=== PATIENT | male | born 1965 | race Caucasian/White ===

== ENCOUNTER 2024-06-17 15:03 | Inpatient (IN) | payer OTHER, SELFPAY ==
[2024-06-17 15:12] VITALS: BP 113/80; PULSE 111; RESP 18; TEMP 36.8; O2SAT 95; BMI 32.3
--- NOTE | 2024-06-17 15:15 | EKG_ITS ---
[facility] Test Date: 2024-06-17 Pat Name: OLIVIA BASSETT Department: Room: - Gender: Male [employer]: : 1965 Requested By: Chata Lazcano Order Number: [id number] Reading MD: Chata Lazcano Measurements Intervals Porter Rate: 91 P: 44 [place]: 137 QRS: 53 QRSD: 92 T: 47 QT: 342 QTc: 421 Interpretive Statements SINUS RHYTHM Compared to ECG 03/02/2019 22:56:11 Sinus tachycardia no longer present /store/S0/[id number].pdf
--- NOTE | 2024-06-17 15:15 | XR_ITS ---
Examination: Abdomen sonogram, Limited Date and time of exam: June 17, 2024 1608 hours INDICATIONS: Right abdominal pain and vomiting beginning 3 days ago Technique: Real-time ward scale transabdominal sonographic images of the upper abdomen obtained. Findings: Negative for gallstones Gallbladder wall 0.5 cm suspicious for edema Common bile duct 0.2 cm Pancreatic head 2.7 cm Liver 18.0 cm fatty infiltration irregular contour no focal liver lesions Normal hepatopedal portal venous flow Patent IVC IMPRESSION: Recommend MRCP or HIDA scan follow-up to confirm acute acalculous cholecystitis Moderate hepatomegaly fatty liver irregular contour, clinical correlation advised
--- NOTE | 2024-06-17 15:16 | PD.EDABDPN ---
ED Abdominal Pain RME/HPI General Chief Complaint: Abdominal Pain Stated complaint: MEDICAL CLEARANCE Time seen by provider: 06/17/24 15:11 Arrival date/time: 06/17/24 15:03 RME / HPI RME / HPI narrative: 58-year-old male patient came in for evaluation regarding right upper quadrant pain. This been ongoing for the last 3 days, associated with nausea vomiting, cannot take anything down. Patient [facility]fran [facility] however is not working. Denies any fever denies any other complaints no medications taken prior to arrival. Related Data Previous Rx's ?Medication ?Instructions ?Recorded hydrochlorothiazide 12.5 mg tablet 12.5 mg PO QAM #30 tabs 10/23/21 lisinopril 10 mg tablet 10 mg PO QDAY #30 tabs 10/23/21 Allergies Allergy/AdvReac Type Severity Reaction Status Date / Time Penicillins Allergy Severe Hives Verified 06/17/24 15:15 Review of Systems Review of Systems Narrative Review of Systems: Review of system reviewed and within normal limits except mentioned in HPI Course Quality Measures none Orders Category Date Time Status COVID-19 Screening Questionnaire NOW Care 06/17/24 19:[address] Screening NOW Care 06/17/24 17:35 Active Decision to Admit X1 Care 06/17/24 19:50 Active EKG (ED ONLY) *Do not use* NOW Care 06/17/24 15:[address] abdomen pelvis w con Stat Exams 06/17/24 17:34 Completed EKG (ED Only) Stat Exams 06/17/24 15:15 Draft US gall bladder Stat Exams 06/17/24 15:15 Completed CBC Stat Lab 06/17/24 15:24 Completed Comprehensive Metabolic Panel Stat Lab 06/17/24 15:24 Completed Lipase Stat Lab 06/17/24 15:24 Completed Lipid Panel Stat Lab 06/17/24 15:24 Completed Partial Thromboplastin Time Stat Lab 06/17/24 15:24 Completed Prothrombin Time with INR Stat Lab 06/17/24 15:24 Completed Famotidine Inj [Pepcid Inj] Med 06/17/24 15:15 Discontinued 20 mg IVP X1 ONE HYDROmorphone INJ [Dilaudid Inj] Med 06/17/24 19:40 Discontinued 1 mg IVP X1 ONE Morphine Inj Med 06/17/24 17:39 Discontinued 4 mg IVP X1 ONE Ondansetron Inj [Zofran Inj] Med 06/17/24 15:15 Discontinued 4 mg IV X1 ONE Sodium Chloride 0.9% 1000 ml [Ns] 1,000 ml Med 06/17/24 15:16 Discontinued IV 999 mls/hr Sodium Chloride 0.9% 1000 ml [Ns] 1,000 ml Med 06/17/24 17:39 Discontinued IV 999 mls/hr Vital Signs Vital signs: Vital Signs Temperature 98.3 F 06/17/24 15:12 Pulse Rate 111 H 06/17/24 15:12 Respiratory Rate 18 06/17/24 15:12 Blood Pressure 113/80 06/17/24 15:12 Pulse Oximetry (%) 95 06/17/24 15:12 Oxygen Delivery Method Room Air 06/17/24 15:12 Abdominal Pain [facility] Narrative [facility] Narrative:: 58-year-old male patient came in for evaluation regarding right upper quadrant pain. This been ongoing for the last 3 days, associated with nausea vomiting, cannot take anything down. Patient was [facility] Zofran [facility] the [facility] however is not working. Denies any fever denies any other complaints no medications taken prior to arrival. Patient's workup is significant for acute pancreatitis. CT scan of the abdomen and pelvis showed pancreatitis. No pseudocyst. Ultrasound of the gallbladder showed no acute pathology except for fatty liver. Results discussed with the patient. Patient received IV fluids for hydration, IV morphine and IV Dilaudid and Zofran. Spoke with hospitalist who admitted the patient Patient data External records reviewed:: None Clinical information provided by:: patient Social determinants that could affect healthcare access:: none Patient has the following chronic illnesses:: Hypertension How is presenting disease/condition affected by chronic disease/condition?: no chronic disease Evaluation data The following diagnostics were reviewed and interpreted by me:: lab results and radiology exam(s) Lab and/or radiology exams considered but not ordered:: None Interpretation Summary: See results in MDM Medications / Prescriptions Medications or Prescriptions considered but not ordered:: None Medication administrations:: Medication Administration History Discontinued Medications Famotidine (Famotidine Inj 10 Mg/Ml Vial 2 Ml) 20 mg IVP X1 ONE Stop: 06/17/24 15:16 Last Admin: 06/17/24 17:36 Dose: 20 mg Documented By: STAN Hydromorphone HCl (Hydromorphone Inj 2 Mg/Ml Vial) 1 mg IVP X1 ONE Stop: 06/17/24 19:41 Sodium Chloride (Ns) 1,000 mls @ 999 mls/hr IV .Q1H1M ONE Stop: 06/17/24 16:16 Last Infusion: 06/17/24 18:22 Dose: Infused Documented By: Admin: 06/17/24 17:35 Dose: 999 mls/hr Documented By: Sodium Chloride (Ns) 1,000 mls @ 999 mls/hr IV .Q1H1M ONE Stop: 06/17/24 18:39 Last Admin: 06/17/24 18:22 Dose: 999 mls/hr Documented By: Morphine Sulfate (Morphine Sulf Inj 10 Mg/Ml Vial) 4 mg IVP X1 ONE Stop: 06/17/24 17:40 Last Admin: 06/17/24 17:44 Dose: 4 mg Documented By: Ondansetron HCl (Ondansetron Inj 2 Mg/Ml Inj 2 Ml) 4 mg IV X1 ONE; Protocol Stop: 06/17/24 15:16 Last Admin: 06/17/24 17:40 Dose: 4 mg Documented By: Patient received Pepcid, Dilaudid IV fluids morphine and Zofran Consultations Consultation(s) initiated? (list below): No Diagnosis Differential diagnosis abdominal pain: abdominal pain, gastroenteritis and pancreatitis Most likely diagnosis given after review of the tests above:: Acute pancreatitis Admission Indicated Admission indicated?: indicated Explain why admission is indicated or not indicated:: Is to be admitted for acute pancreatitis Admission Request Was there a request for admission?: Yes Admission Attestation Admission request attestation: Discussed case with [Dr. Baldwin] from Hospitalist service regarding admission. Discussed patients ED course, exam findings, labs, and radiology results. The Hospitalist [agrees to accept the patient for admission. Disposition Plan Disposition Plan: Admit Discharge Plan Plan Patient Disposition: Admit Acute Care w/in Hospital Disposition Comment: Stable Prescriptions/Referrals Prescriptions/Med Rec: No Action hydrochlorothiazide 12.5 mg tablet 12.5 mg PO QAM Qty: 30 0RF lisinopril 10 mg tablet 10 mg PO QDAY Qty: 30 0RF Referrals: David Scales MD [Primary Care Provider] - In 1 week Problem List Clinical Impression: Acute pancreatitis Patient/Caregiver Discharge Instructions Print Language: Georgian Stand Alone Forms: Rosa Jaramillo Info., Patient Portal Info Letter
[2024-06-17 15:30] LABS: Basophils % (Auto) 0 % (0-2.5); Eosinophils # (Auto) 0.2 Thou/mm3 (0.0-0.5); Eosinophils % (Auto) 1 % (0-10); Hematocrit 42.5 % (41.0-53.0); Hemoglobin 14.2 g/dL (13.5-16.0); Immature Granulocytes % (Auto) 0 % (0-0); Immature Granulocytes Auto 0.07 Thou/mm3 (0.00-0.00); Lymphocytes # (Auto) 1.3 Thou/mm3 (1.0-4.8); Lymphocytes % (Auto) 8 % (10-50); Mean Corpuscular HGB Conc 33.4 g/dl (31.0-37.0); Mean Corpuscular Hemoglobin 29.3 pg (25.0-35.0); Mean Corpuscular Volume 88 fL (80-100); Monocytes # (Auto) 1.3 Thou/mm3 (0.0-0.8); Monocytes % (Auto) 8 % (0-12); Neutrophils % (Auto) 83 % (37-80); Nucleated Red Blood Cell % 0 /100 WBC (0); Platelet Count 266 Thou/mm3 (140-440); RDW Standard Deviation 42.4 fL (35.1-43.9); Red Blood Count 4.84 Miln/mm3 (4.50-5.90); White Blood Count 15.8 Thou/mm3 (3.8-10.6)
[2024-06-17 15:57] LABS: Alanine Aminotransferase 15 U/L (10-49); Albumin/Globulin Ratio 1.9 (1.2-2.2); Alkaline Phosphatase 90 U/L (46-116); Anion Gap 9 (7-16); Aspartate Amino Transferase 12 U/L (0-34); BUN/Creatinine Ratio 14 Ratio (12-20); Bilirubin,Total 0.7 mg/dL (0.3-1.2); Blood Urea Nitrogen 13 mg/dL (9-23); Calcium 9.6 mg/dL (8.3-10.6); Calcium (Corrected) 9.6 mg/dL (8.5-10.1); Carbon Dioxide 25.2 mMol/L (20.0-31.0); Chloride 103 mMol/L (98-107); Creatinine (Component) 0.9 mg/dL (0.6-1.3); Estimated Creatinine Clearance 96.7 mL/min (>60); Globulin 2.7 gm/dL (2.3-3.5); Glucose 96 mg/dL (74-106); Lipase 2633 U/L (12-53); Osmolality,Calculated 273 (275-295); Sodium 137 mMol/L (136-145); Total Protein 7.7 gm/dL (5.7-8.2); eGFR > 60 See Note
[2024-06-17 16:02] LABS: Partial Thromboplastin Time 30.1 Seconds (22.0-36.0); Prothrombin Time 11.4 Seconds (9.0-12.2)
[2024-06-17 17:31] VITALS: BP 120/68; PULSE 95; RESP 18; TEMP 36.8; O2SAT 99
--- NOTE | 2024-06-17 17:34 | XR_ITS ---
Examination: CT abdomen with intravenous contrast CT pelvis with intravenous contrast 2-D coronal reconstructions 2-D sagittal reconstructions Date and time of exam:June 17, 2024 1833 hours INDICATIONS: Onset right-sided abdominal pain today. CTDI: vol (mGy) 10.2 DLP: (mGycm) 770 Technique: Multiple axial sections of the abdomen and pelvis have been obtained. 64 slice high-resolution scanner used. 3 mm axial sections have been obtained, post intravenous injection 60 cc [id number]-[id number]. 2-D sagittal, coronal reconstructions obtained. Low dose protocols were performed. One or more of the following dose reduction techniques were used; automated exposure control, adjustment of the mA and/or KV according to patient size, use of iterative reconstruction technique. Findings: No focal liver or splenic lesions. No gallstones. Mild edema surrounding the pancreas Normal adrenal glands No renal or ureteral calculi, no hydronephrosis Aorta normal size 10 mm fat-containing umbilical hernia Normal appendix Colonic diverticulosis, no diverticulitis. Normal seminal vesicles. No prostatomegaly No bladder mass or bladder calculi Tiny fat-containing umbilical hernias Diffuse lumbar degenerative disease, advanced at the lower 3 lumbar levels IMPRESSION: Acute pancreatitis, no pseudocyst Normal appendix
[2024-06-17] MEDS: SODIUM CHLORIDE 0.9% 1000 ML 1,000 ML 999 ML IV ×2 (17:35→18:22)
[2024-06-17] MEDS: FAMOTIDINE INJ 10 MG/ML VIAL 2 ML 20 MG IVP (17:36)
[2024-06-17] MEDS: ONDANSETRON INJ 2 MG/ML INJ 2 ML 4 MG IV (17:40)
[2024-06-17] MEDS: MORPHINE SULF INJ 10 MG/ML VIAL 4 MG IVP ×2 (17:44→23:33)
[2024-06-17 18:47] LABS: Cardiac Risk Estimate 2.5 RATIO (4.0-6.7); Cholesterol 158 mg/dL (132-200); HDL Cholesterol 63 mg/dL (40-60); LDL Cholesterol,Calculated 84 mg/dL (0-130); Triglycerides 54 mg/dL (30-150)
[2024-06-17 19:09] VITALS: BP 121/93; PULSE 92; RESP 17; O2SAT 97
[2024-06-17 19:41] VITALS: TEMP 36.8
[2024-06-17] MEDS: HYDROmorphone INJ 2 MG/ML VIAL 1 MG IVP (20:24)
--- NOTE | 2024-06-17 20:54 | ESHP_ITS ---
<Statement entered by Joel Rico MD - 06/18/24 13:35> I have discussed and was present for the essential components of the history, physical examination, diagnosis, and treatment plan with the resident. I agree with the patient's care as documented by the resident and amended herein by me. Joel Rico MD FACP. Documentation for date of: 06/17/24 HPI History of Present Illness Chief complaint: Epigastric pain, Vomiting History of present illness: HPI: Accompanied by Geriatric Nursing Assistant at bedside. Patient is a 58-year-old male with a past medical history significant for essential hypertension, hyperlipidemia and obesity class I presenting with a chief complaint of epigastric pain and vomiting. Patient stated that his epigastric pain started 3 days ago. He described it as the worst pain in his life, constant, no radiation, no relieving factors and aggravated by touch. It was also associated with vomiting. His vomiting was initially food contents, greater than 10 episodes per day and progressed to bilious vomiting eventually. Due to his epigastric pain and vomiting he has not eaten anything for the past 3 days. Denied any hematemesis, coffee ground emesis, diarrhea, melena, headache, chest pain, SOB and palpitations. Currently patient's last episode of vomiting was yesterday, however he is still nauseous. He was able to tolerate ice chips without any vomiting while in the ED. Of note patient never had previous episodes of pancreatitis. He also denied any recent antibiotic use and insect bite. ED course: BP 113/80, pulse 111, RR 18, temp 98.3 F, SpO2 95% on room air. Labs significant for WBC 15.8, BUN 13, CR 0.9, lipase 2633, albumin 5, Cholesterol 158, LDL 84, triglycerides 54, HDL 63 EKG significant for sinus rhythm, rate 91, QTc 421. No acute ST changes. Gallbladder ultrasound significant from moderate hepatomegaly, fatty liver and negative for gallstones. Abdomen/pelvis CT significant for mild edema surrounding the pancreas. Acute pancreatitis, no pseudocyst. In the ED patient received 2 L normal saline IVF bolus, famotidine 20 Mg IV x 1, ondansetron 4 Mg IV x 1, morphine 4 Mg IV x 1 and hydromorphone 1 Mg IV x 1. Patient will be admitted for treatment and management of acute pancreatitis. Review of Systems Review of Systems Narrative Review of Systems: GENERAL: Denies fever/chills or diaphoresis. HEENT: Denies headaches or visual changes. Denies discharge. Neuro: Denies unusual weakness or difficulty speaking. CARDIO: Denies chest pain or palpitations. PULM: Denies SOB, coughing or wheezing. GI: As above URO: Denies burning/itching/pain/urinary changes. MSK/EXT/SKIN: Denies joint/skeletal/muscle pain, issues/changes in upper or lower extremities, itchiness, or superficial pain. PSYCH: Cooperative, pleasant mood & affect. The rest of the review of systems is otherwise negative. Past Medical History Past Medical History Comments PMH COMMENT: Past medical history: ? Essential hypertension - Hyperlipidemia ? Obesity class I Medication list: ?Lisinopril 10 Mg p.o. daily ? HCTZ 12.5 Mg p.o. every afternoon Past surgical history: ?Bilateral tympanostomy tubes as a child Allergies: Penicillin - Hives Social history: Occupational History: Education Level: Marital Status: Tobacco use: Approximately 35 pack year history. Currently smokes about 1 pack per day ETHO use: Denies Illicit drug use: Denies. 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 Never IV drug use Social History Note: lives in nursing home. Family History: Denies Exam Vital Signs Temp Pulse Resp BP Pulse Ox O2 Del Method 98.2 F 92 17 121/93 H 97 Room Air 06/17/24 19:41 06/17/24 19:09 06/17/24 19:09 06/17/24 19:09 06/17/24 19:09 06/17/24 19:09 Narrative Exam Constitutional Alert, oriented x 3 and mild distress. Middle-age, obese male in bilateral arm and leg shackles HEENT Vision grossly intact. Patent nares. Trachea midline Respiratory Chest normal on inspection and clear auscultation bilaterally Cardiovascular S1 and S2 audible, RRR. No murmurs carotid bruit. No gross JVD. Abdominal Soft, obese and tender to light palpation in epigastrium. Bowel sounds present Genitourinary No bladder tenderness, no flank pain. Normal to palpation Musculoskeletal Extremities tone within normal limits. No LE edema. Neurological CN II - XII grossly intact. Extremity motor and sensation grossly intact. Skin Warm, dry and intact. No apparent lesions. Psychiatric Patient has good affect, is cooperative Results: Labs 06/17/24 15:24 06/17/24 15:24 Labs: Short CBC 06/17/24 Range/Units 15:24 WBC 15.8 H (3.8-10.6) Thou/mm3 Hgb 14.2 (13.5-16.0) g/dL Hct 42.5 (41.0-53.0) % Plt Count 266 (140-440) Thou/mm3 BMP 06/17/24 15:24 Sodium 137 Potassium 4.0 Chloride 103 Carbon Dioxide 25.2 BUN 13 Creatinine 0.9 Glucose 96 Calcium 9.6 Liver Function 06/17/24 Range/Units 15:24 Total Bilirubin 0.7 (0.3-1.2) mg/dL AST 12 (0-34) U/L ALT 15 (10-49) U/L Alkaline Phosphatase 90 (46-116) U/L Albumin 5.0 (3.5-5.0) gm/dL Quality Measures Quality Measures none Medications Home Medications and Allergies Allergies Allergy/AdvReac Type Severity Reaction Status Date / Time Penicillins Allergy Severe Hives Verified 06/17/24 15:15 Visit Medications Discontinued Medications Famotidine (Famotidine Inj 10 Mg/Ml Vial 2 Ml) 20 mg IVP X1 ONE Stop: 06/17/24 15:16 Last Admin: 06/17/24 17:36 Dose: 20 mg Hydromorphone HCl (Hydromorphone Inj 2 Mg/Ml Vial) 1 mg IVP X1 ONE Stop: 06/17/24 19:41 Last Admin: 06/17/24 20:24 Dose: 1 mg Sodium Chloride (Ns) 1,000 mls @ 999 mls/hr IV .Q1H1M ONE Stop: 06/17/24 16:16 Last Infusion: 06/17/24 18:22 Dose: Infused Sodium Chloride (Ns) 1,000 mls @ 999 mls/hr IV .Q1H1M ONE Stop: 06/17/24 18:39 Last Infusion: 06/17/24 20:26 Dose: Infused Morphine Sulfate (Morphine Sulf Inj 10 Mg/Ml Vial) 4 mg IVP X1 ONE Stop: 06/17/24 17:40 Last Admin: 06/17/24 17:44 Dose: 4 mg Ondansetron HCl (Ondansetron Inj 2 Mg/Ml Inj 2 Ml) 4 mg IV X1 ONE; Protocol Stop: 06/17/24 15:16 Last Admin: 06/17/24 17:40 Dose: 4 mg Assessment & Plan Plan Patient is a 58-year-old male with a past medical history significant for essential hypertension, hyperlipidemia and obesity class I presenting with a chief complaint of epigastric pain and vomiting. Patient will be admitted for treatment and management of acute pancreatitis. 1. Acute pancreatitis 2. Leukocytosis 3. SIRS 2/4 Patient presented with epigastric pain and vomiting for the past 3 days. On exam patient is tender to light palpation epigastrium Etiology: Medication side effect [thiazides], viral, scorpion bite, hyperlipidemia Gallbladder ultrasound significant from moderate hepatomegaly, fatty liver and negative for gallstones. Abdomen/pelvis CT significant for mild edema surrounding the pancreas. Acute pancreatitis, no pseudocyst. Lipase 2633, WBC 15.8, albumin 5. Marlen Criteria : 3 BISAP score : 1. Increased risk of mortality Niki- Imrie score for pancreatitis : Pending LDH SIRS 2/4. Tachycardia 111, WBC 15.8. Leukocytosis most likely due to volume depletion from excessive vomiting Plan: ? Clear liquid diet as tolerated ? LDH ordered ? IV fluids lactated Ringer's at 150 cc/h ? IV pain control with ketorolac 30 Mg IV every 6 hourly for pain 1?6, morphine 4 Mg IV Q4 hourly for pain 7?10 and hydromorphone 1 Mg IV Q4 hourly as needed for breakthrough pain 4. Essential hypertension 5. Hyperlipidemia 6. Obesity class I On admission BP 113/80, BMI 32.3 Lipid panel significant for Cholesterol 158, LDL 84, triglycerides 54, HDL 63 Home medication lisinopril 10 Mg p.o. daily and HCTZ 12.5 Mg p.o. every afternoon Plan: ? Antihypertensives on hold for now due to normotension, day team to decide if to resume. ? Recommend to completely discontinue HCTZ as this is a possible etiology of his pancreatitis. Health maintenance: Disposition: IV pain control, IV hydration and advance diet as necessary. Diet: Clear liquid diet Lines: pIVs GI Prophylaxis: Pantoprazole Thrombo Prophylaxis: Lovenox Code status: FULL CODE Plan of care discussed with Attending Dr. Trisha Baldwin MD PGY 1
[2024-06-17 21:17] VITALS: PULSE 99; RESP 18; RESP 97; O2SAT 97
[2024-06-17 21:58] LABS: Collection Type, Urine Clean Catch; Squamous Epithelial Cell,Urine 0 /hpf (0-5)
[2024-06-17] MEDS: ENOXAPARIN SOD INJ 40 MG/0.4 ML SYRINGE SC (22:05)
[2024-06-17] MEDS: RINGERS LACTATED 1000 ML 1,000 ML 150 ML IV (22:10)
[2024-06-17 22:12] VITALS: BP 124/79; PULSE 98; RESP 17; O2SAT 97
[2024-06-17 22:37] LABS: Bilirubin,Urine Negative (Negative); Blood,Urine Negative (Negative); Clarity,Urine Clear (Clear/Hazy); Color,Urine Lt-Yellow (Lt Yel-Yel); Glucose, Urine Negative (Negative); Ketones,Urine 3+ (Negative); Leukocyte Esterase,Urine Negative (Negative); Nitrite,Urine Negative (Negative); PH,Urine 6.5 (5.0-7.0); Protein,Urine Trace (Neg - Trace); RBC,Urine 4 /hpf (0-3); Urobilinogen,Urine Negative mg/dL (0.0-1.0); WBC,Urine < 1 /hpf (0-5)
[2024-06-17 22:50] LABS: Specific Gravity,Urine 1.035 (1.001-1.035)
[2024-06-17 23:07] LABS: Alcohol, Urine Negative (Negative); Amphetamine/Methamp Scrn,U Negative (Negative); Barbiturate Screen,Urine Negative (Negative); Benzodiazepines Screen,Urine Negative (Negative); Benzoylecgonine Screen, Ur Negative (Negative); Fentanyl Screen,Urine Negative (Negative); Opiate Screen,Urine Positive (Negative); THC Screen,Urine Negative (Negative)
[2024-06-18] VITALS (9 sets, daily range): BP systolic 99–127; BP diastolic 58–82; PULSE 6–97; RESP 17–98; TEMP 36.6–36.9; O2SAT 90–98; BMI 33.2
[2024-06-18] MEDS: HYDROmorphone INJ 2 MG/ML VIAL 1 MG IVP ×2 (03:45→08:02)
[2024-06-18] MEDS: RINGERS LACTATED 1000 ML 1,000 ML 150 ML IV ×3 (03:45→21:07)
[2024-06-18 05:57] LABS: Basophils % (Auto) 0 % (0-2.5); Eosinophils # (Auto) 0.2 Thou/mm3 (0.0-0.5); Eosinophils % (Auto) 1 % (0-10); Hematocrit 37.2 % (41.0-53.0); Hemoglobin 12.2 g/dL (13.5-16.0); Immature Granulocytes % (Auto) 0 % (0-0); Immature Granulocytes Auto 0.05 Thou/mm3 (0.00-0.00); Lymphocytes # (Auto) 1.2 Thou/mm3 (1.0-4.8); Lymphocytes % (Auto) 10 % (10-50); Mean Corpuscular HGB Conc 32.8 g/dl (31.0-37.0); Mean Corpuscular Hemoglobin 29.2 pg (25.0-35.0); Mean Corpuscular Volume 89 fL (80-100); Monocytes # (Auto) 1.2 Thou/mm3 (0.0-0.8); Monocytes % (Auto) 10 % (0-12); Neutrophils # (Auto) 9.5 Thou/mm3 (1.8-7.7); Neutrophils % (Auto) 79 % (37-80); Nucleated Red Blood Cell % 0 /100 WBC (0); Platelet Count 204 Thou/mm3 (140-440); RDW Standard Deviation 43.6 fL (35.1-43.9); Red Blood Count 4.18 Miln/mm3 (4.50-5.90); White Blood Count 12.1 Thou/mm3 (3.8-10.6)
[2024-06-18 06:34] LABS: Glucose Estimated Average 105 mg/dL (80-131); Hemoglobin A1C 5.3 % Hgb (4.8-6.0)
[2024-06-18 06:37] LABS: Alanine Aminotransferase 11 U/L (10-49); Albumin/Globulin Ratio 1.5 (1.2-2.2); Alkaline Phosphatase 74 U/L (46-116); Anion Gap 7 (7-16); Aspartate Amino Transferase 11 U/L (0-34); BUN/Creatinine Ratio 15 Ratio (12-20); Bilirubin,Total 0.6 mg/dL (0.3-1.2); Blood Urea Nitrogen 12 mg/dL (9-23); Carbon Dioxide 25.6 mMol/L (20.0-31.0); Chloride 105 mMol/L (98-107); Creatinine (Component) 0.8 mg/dL (0.6-1.3); Estimated Creatinine Clearance 144.2 mL/min (>60); Globulin 2.7 gm/dL (2.3-3.5); Glucose 83 mg/dL (74-106); LDH (Lactate Dehydrogenase) 155 U/L (120-246); Magnesium 1.9 mg/dL (1.6-2.6); Osmolality,Calculated 274 (275-295); Phosphorous 2.3 mg/dL (2.4-5.1); Potassium 3.8 mMol/L (3.4-5.1); Sodium 138 mMol/L (136-145); Thyroid Stimulating Hormone 0.47 uIU/mL (0.55-4.78); Total Protein 6.7 gm/dL (5.7-8.2); eGFR > 60 See Note
[2024-06-18] MEDS: ENOXAPARIN SOD INJ 40 MG/0.4 ML SYRINGE SC (08:02)
[2024-06-18] MEDS: PANTOPRAZOLE INJ 40 MG VIAL IVP (08:02)
[2024-06-18] MEDS: ONDANSETRON INJ 2 MG/ML INJ 2 ML 4 MG IV ×2 (08:07→19:32)
[2024-06-18] MEDS: Magnesium Sulfate 2 GM Ivpb 2 GM/50 ML BAG IV (13:33)
[2024-06-18] MEDS: POTASSIUM CHL 10 mEq IVPB 10 MEQ/100 ML BAG 100 MEQ IV ×4 (13:37→19:38)
--- NOTE | 2024-06-18 13:56 | PD.RESPRO ---
Documentation for date of: 06/18/24 Subjective Subjective Interval history: Patient was examined at bedside this morning, he was comfortably sleeping in bed. Complaining of mild pain abdomen. Exam Vital Signs Temp Pulse Resp BP Pulse Ox O2 Del Method 97.8 F 93 18 127/70 96 Room Air 06/18/24 12:00 06/18/24 12:00 06/18/24 12:00 06/18/24 12:00 06/18/24 12:00 06/18/24 12:00 Narrative Exam GENERAL: Comfortable adult seen resting comfortably in hospital bed, no acute distress VITALS: All vitals were reviewed and the pulse ox is 98% on room air HEENT: Normocephalic, atraumatic. Pupils are equal and reactive. Oral mucosa is moist. NECK: Supple, nontender, no JVD CHEST: Symmetrical, atraumatic and with equal expansion ,Nontender on palpation CARDIOVASCULAR: Heart regular rhythm & rate. S1/S2. no murmur or gallop rub or extra beats. LUNGS: Clear to auscultation bilaterally with symmetrical chest rise. No laboring tachypnea or wheezing. No intercostal subcostal retraction. No rales and no rhonchi. ABDOMEN: Soft, flat, nontender to palpation, no guarding or rebound tenderness. Active and normal bowel sounds.mild abd pain EXTREMITIES:Moves all 4 extremities,No B/L LE edema. SKIN: Warm and dry, no jaundice or rashes noted. NEURO: Patient is AO x 3, Cranial nerves II through XII grossly intact. There is no focal neurologic deficits noted. PSYCHIATRIC: Patient is in normal mood, cooperative, no SI or HI or hallucinations. Objective Labs 06/18/24 04:55 06/18/24 04:55 Labs: Laboratory Results - last 24 hr 06/17/24 06/17/24 06/17/24 15:24 15:24 21:39 WBC 15.8 H RBC 4.84 Hgb 14.2 Hct 42.5 MCV 88 MCH 29.3 MCHC 33.4 RDW Std Deviation 42.4 Plt Count 266 Neut % (Auto) 83 H Lymph % (Auto) 8 L Kerr % (Auto) 8 Eos % (Auto) 1 Baso % (Auto) 0 Neut # (Auto) 13.0 H Lymph # (Auto) 1.3 Kerr # (Auto) 1.3 H Eos # (Auto) 0.2 Baso # (Auto) 0.0 Immature Gran # (Auto) 0.07 H Absolute Nucleated RBC 0.00 Immature Gran % 0 Nucleated RBC % 0 PT 11.4 INR 1.0 APTT 30.1 Sodium 137 Potassium 4.0 Chloride 103 Carbon Dioxide 25.2 Anion Gap 9 BUN 13 Creatinine 0.9 Estim Creat Clear Calc 96.7 eGFR > 60 BUN/Creatinine Ratio [address] Glu mg/dL Hemoglobin A1c Calculated Osmolality 273 L Calcium 9.6 Corrected Calcium 9.6 Phosphorus Magnesium Total Bilirubin 0.7 AST 12 ALT 15 Alkaline Phosphatase 90 Lactate Dehydrogenase Cancelled Cancelled Total Protein 7.7 Albumin 5.0 Globulin 2.7 Albumin/Globulin Ratio 1.9 Triglycerides 54 Cholesterol 158 LDL Cholesterol, Calc 84 HDL Cholesterol 63 H Cholesterol/HDL Ratio 2.5 L Lipase 2633 H* TSH Ur Collection Type Clean Catch Urine Color Lt-Yellow Urine Clarity Clear Urine pH 6.5 Ur Specific [place] 1.035 Urine Protein Trace Urine Glucose (UA) Negative Urine Ketones 3+ A Urine Blood Negative Urine Nitrite Negative Urine Bilirubin Negative Urine Urobilinogen (Auto) Negative Ur Leukocyte Esterase Negative Urine RBC 4 H Urine WBC < 1 Ur Squamous Epith Cells 0 Urine Bacteria None Urine Opiates Screen Positive A Urine Fentanyl Screen Negative Ur Barbiturates Screen Negative U Amphetamin/Meth Scrn Negative U Benzodiazepines Scrn Negative U Cocaine Metab Screen Negative U Marijuana (THC) Screen Negative Urine Alcohol Negative 06/18/24 04:55 WBC 12.1 H RBC 4.18 L Hgb 12.2 L D Hct 37.2 L MCV 89 MCH 29.2 MCHC 32.8 RDW Std Deviation 43.6 Plt Count 204 D Neut % (Auto) 79 Lymph % (Auto) 10 Kerr % (Auto) 10 Eos % (Auto) 1 Baso % (Auto) 0 Neut # (Auto) 9.5 H Lymph # (Auto) 1.2 Kerr # (Auto) 1.2 H Eos # (Auto) 0.2 Baso # (Auto) 0.0 Immature Gran # (Auto) 0.05 H Absolute Nucleated RBC 0.00 Immature Gran % 0 Nucleated RBC % 0 PT INR APTT Sodium 138 Potassium 3.8 Chloride 105 Carbon Dioxide 25.6 Anion Gap 7 BUN 12 Creatinine 0.8 Estim Creat Clear Calc 144.2 eGFR > 60 BUN/Creatinine Ratio [address] Glu mg/dL 105 Hemoglobin A1c 5.3 Calculated Osmolality 274 L Calcium 9.0 Corrected Calcium 9.0 Phosphorus 2.3 L Magnesium 1.9 Total Bilirubin 0.6 AST 11 ALT 11 Alkaline Phosphatase 74 Lactate Dehydrogenase 155 Total Protein 6.7 Albumin 4.0 D Globulin 2.7 Albumin/Globulin Ratio 1.5 Triglycerides Cholesterol LDL Cholesterol, Calc HDL Cholesterol Cholesterol/HDL Ratio Lipase TSH 0.47 L Ur Collection Type Urine Color Urine Clarity Urine pH Ur Specific [place] Urine Protein Urine Glucose (UA) Urine Ketones Urine Blood Urine Nitrite Urine Bilirubin Urine Urobilinogen (Auto) Ur Leukocyte Esterase Urine RBC Urine WBC Ur Squamous Epith Cells Urine Bacteria Urine Opiates Screen Urine Fentanyl Screen Ur Barbiturates Screen U Amphetamin/Meth Scrn U Benzodiazepines Scrn U Cocaine Metab Screen U Marijuana (THC) Screen Urine Alcohol Quality Measures Quality Measures none Assessment & Plan Assessment Current Active Medications: Generic Name Dose Route Start Last Admin Trade Name Freq PRN Reason Stop Dose Admin Acetaminophen 650 mg 06/17/24 20:54 Acetaminophen 325 Mg Tablet PO 07/17/24 20:53 Q6H PRN Fever >100.3 or pain Protocol Albuterol/Ipratropium 3 ml 06/17/24 20:54 Albuterol/Ipratropium (Duoneb) Rt Promise 3 Ml Nebu INH 07/17/24 20:53 Q4HR PRN SHORTNESS OF BREATH OR WHEEZE Atorvastatin Calcium 10 mg 06/18/24 21:00 Atorvastatin Calcium 10 Mg Tablet PO 07/18/24 20:59 QPM CYNTHIA Enoxaparin Sodium 40 mg 06/17/24 21:00 06/18/24 08:02 Enoxaparin Sod Inj 40 Mg/0.4 Ml Syringe SC 07/01/24 20:59 40 mg QDAY CYNTHIA Administration Hydromorphone HCl 1 mg 06/17/24 20:54 06/18/24 08:02 Hydromorphone Inj 2 Mg/Ml Vial IVP 06/22/24 20:53 1 mg Q4HR PRN Administration BREAKTHROUGH PAIN Lactated Ringer's 1,000 mls @ 150 mls/hr 06/17/24 21:35 06/18/24 03:45 Lactated Ringers IV 07/17/24 21:34 150 mls/hr .Q6H40M CYNTHIA Administration Potassium Chloride 10 meq in 100 mls @ 100 mls/hr 06/18/24 10:35 Kcl Ivpb IV 06/18/24 14:34 Q1H CYNTHIA Ketorolac Tromethamine 30 mg 06/18/24 12:04 Ketorolac Inj 30 Mg/Ml Vial IVP 06/22/24 20:59 Q6HR PRN PAIN 4-6 (mild-mod Morphine Sulfate 4 mg 06/17/24 20:54 06/17/24 23:33 Morphine Sulf Inj 10 Mg/Ml Vial IVP 06/22/24 20:53 4 mg Q4HR PRN Administration PAIN SCALE 7-10 (Severe Ondansetron HCl 4 mg 06/17/24 20:54 06/18/24 08:07 Ondansetron Inj 2 Mg/Ml Inj 2 Ml IV 07/17/24 20:53 4 mg Q6H PRN Administration NAUSEA OR VOMITING Protocol Pantoprazole Sodium 40 mg 06/18/24 09:00 06/18/24 08:02 Pantoprazole Inj 40 Mg Vial IVP 07/18/24 08:59 40 mg QDAY CYNTHIA Administration Plan Patient is a 58-year-old male with a past medical history significant for essential hypertension, hyperlipidemia and obesity class I presenting with a chief complaint of epigastric pain and vomiting. Patient will be admitted for treatment and management of acute pancreatitis. #Acute pancreatitis # Leukocytosis-resolving #SIRS 2/4 -Patient presented with epigastric pain and vomiting for the past 3 days. -On exam patient is tender to light palpation epigastrium -Etiology: Medication side effect thiazides, viral, scorpion bite, hyperlipidemia -Gallbladder ultrasound significant from moderate hepatomegaly, fatty liver and negative for gallstones. -Abdomen/pelvis CT significant for mild edema surrounding the pancreas. Acute pancreatitis, no pseudocyst. -Labs- Lipase 2633, WBC 15.8, albumin 5. -Marlen Criteria : 3 -BISAP score : 1. Increased risk of mortality -SIRS 2/4. Tachycardia 111, WBC 15.8. -Leukocytosis most likely due to volume depletion from excessive vomiting ? Clear liquid diet as tolerated ? LDH ordered ? IV fluids lactated Ringer's at 150 cc/h ? IV pain control with ketorolac 30 Mg IV every 6 hourly for pain 1?6, morphine 4 Mg IV Q4 hourly for pain 7?10 and hydromorphone 1 Mg IV Q4 hourly as needed for breakthrough pain #Essential hypertension # Hyperlipidemia #Obesity class I -On admission BP 113/80, BMI 32.3- -Lipid panel significant for Cholesterol 158, LDL 84, triglycerides 54, HDL 63 -Home medication lisinopril 10 Mg p.o. daily and HCTZ 12.5 Mg p.o held , as one of rare side effect is pancreatitis -Could start Amlodipine if needed Health maintenance: Disposition: IV pain control, IV hydration and advance diet as necessary. Diet: Clear liquid diet Lines: pIVs GI Prophylaxis: Pantoprazole Thrombo Prophylaxis: Lovenox Code status: FULL CODE Plan of care discussed with Attending Dr Grullon, Feroz Cancino MD, PGY-3 Attending Provider Attestation/Addendum I reviewed labs, imaging, EKG, home medications and prior available records. Face to face evaluation was performed by me. I have personally examined the patient and discussed assessment and plan with the IM team. I reviewed the resident note and agree with the plan with exceptions as below. Acute pancreatitis Essential hypertension Hyperlipidemia Patient's pancreatitis etiology is unclear. Denied alcohol use. He is incarcerated. Denied prior history of pancreatitis. Triglyceride is WNL. Could be in the setting of HCTZ versus lisinopril use as pancreatitis is one of the side effects. Stopped both medications. IV fluids Management of nausea/vomiting as needed Management of pain as needed Clear liquid diet. Advance as tolerated
[2024-06-18] MEDS: KETOROLAC INJ 30 MG/ML VIAL IVP (15:16)
[2024-06-18] MEDS: MORPHINE SULF INJ 10 MG/ML VIAL 4 MG IVP (19:26)
[2024-06-18] MEDS: ATORVASTATIN CALCIUM 10 MG TABLET PO (21:07)
[2024-06-19] VITALS: BP 137/86; PULSE 102; RESP 18; TEMP 37.2; O2SAT 94
[2024-06-19 01:54] VITALS: TEMP 37.2
[2024-06-19] MEDS: KETOROLAC INJ 30 MG/ML VIAL IVP (01:54)
[2024-06-19] MEDS: RINGERS LACTATED 1000 ML 1,000 ML 150 ML IV ×2 (03:50→11:02)
[2024-06-19 04:00] VITALS: BP 108/67; PULSE 91; RESP 18; TEMP 36.8; O2SAT 93
[2024-06-19 05:33] LABS: Basophils % (Auto) 0 % (0-2.5); Eosinophils # (Auto) 0.2 Thou/mm3 (0.0-0.5); Eosinophils % (Auto) 2 % (0-10); Hematocrit 31.5 % (41.0-53.0); Hemoglobin 10.7 g/dL (13.5-16.0); Immature Granulocytes % (Auto) 1 % (0-0); Immature Granulocytes Auto 0.05 Thou/mm3 (0.00-0.00); Lymphocytes # (Auto) 1.5 Thou/mm3 (1.0-4.8); Lymphocytes % (Auto) 13 % (10-50); Mean Corpuscular Hemoglobin 29.8 pg (25.0-35.0); Mean Corpuscular Volume 88 fL (80-100); Monocytes # (Auto) 1.2 Thou/mm3 (0.0-0.8); Monocytes % (Auto) 11 % (0-12); Neutrophils # (Auto) 8.2 Thou/mm3 (1.8-7.7); Neutrophils % (Auto) 73 % (37-80); Nucleated Red Blood Cell % 0 /100 WBC (0); Platelet Count 168 Thou/mm3 (140-440); RDW Standard Deviation 41.9 fL (35.1-43.9); Red Blood Count 3.59 Miln/mm3 (4.50-5.90); White Blood Count 11.1 Thou/mm3 (3.8-10.6)
[2024-06-19 06:12] LABS: Alanine Aminotransferase 10 U/L (10-49); Albumin, Serum 3.6 gm/dL (3.5-5.0); Albumin/Globulin Ratio 1.5 (1.2-2.2); Alkaline Phosphatase 65 U/L (46-116); Anion Gap 8 (7-16); Aspartate Amino Transferase 11 U/L (0-34); BUN/Creatinine Ratio 11 Ratio (12-20); Bilirubin,Total 0.6 mg/dL (0.3-1.2); Blood Urea Nitrogen 9 mg/dL (9-23); Calcium 8.9 mg/dL (8.3-10.6); Calcium (Corrected) 9.2 mg/dL (8.5-10.1); Carbon Dioxide 26.5 mMol/L (20.0-31.0); Chloride 106 mMol/L (98-107); Creatinine (Component) 0.8 mg/dL (0.6-1.3); Estimated Creatinine Clearance 144.2 mL/min (>60); Globulin 2.4 gm/dL (2.3-3.5); Glucose 94 mg/dL (74-106); Magnesium 2.1 mg/dL (1.6-2.6); Osmolality,Calculated 278 (275-295); Phosphorous 2.6 mg/dL (2.4-5.1); Potassium 4.3 mMol/L (3.4-5.1); Sodium 140 mMol/L (136-145); eGFR > 60 See Note
[2024-06-19] MEDS: MORPHINE SULF INJ 10 MG/ML VIAL 4 MG IVP ×2 (06:46→11:26)
[2024-06-19 08:00] VITALS: BP 130/75; PULSE 78; RESP 17; TEMP 36.6; O2SAT 94
[2024-06-19] MEDS: ENOXAPARIN SOD INJ 40 MG/0.4 ML SYRINGE SC (08:31)
[2024-06-19] MEDS: PANTOPRAZOLE INJ 40 MG VIAL IVP (08:31)
[2024-06-19 11:57] VITALS: BP 121/80; PULSE 94; RESP 18; TEMP 36.4; O2SAT 97
--- NOTE | 2024-06-19 15:03 | ESDS_ITS ---
<Statement entered by Sarah Honeycutt MD - 06/23/24 15:41> I reviewed above note and agree with findings and plans. I have also personally examined the patient with medicine team and went over assessment and plan with medical team including pr internship and resident physician. Planned Discharge Date 06/19/24 DS: Providers Provider Date of admission: 06/17/24 20:55 Primary care physician: David Scales MD Admitting Provider: Joel Rico MD Attending Provider on Admission: Joel Rico MD Attending Provider on DC: Shahab Olsen MD Discharging Provider: Shahab Olsen MD DS: Diagnosis Problem List Completed Was Problem List Reviewed/Reconciled?: Yes Hospital Course Hospital Course Hospital course: Patient is a 58-year-old male with a past medical history significant for essential hypertension, hyperlipidemia and obesity class I presenting with a chief complaint of epigastric pain and vomiting was found to have acute pancreatitis 2/2 hydrochlorothiazide and lisinopril use. Lipase and CT abdomen was significant for acute appendicitis. He was started on clear liquid diet, and IV maintenance fluid. This morning he reported his pain has been well- controlled. He was tolerating clear liquid diet well. He was recommended to continue with soft diet for couple of days and advance as tolerated. He was clinically stable to be discharged. He was discharged back to his [place] [facility]. Problems: #Acute pancreatitis #Leukocytosis #Essential hypertension #Hyperlipidemia #Obesity class I Plans: Please follow-up with your PCP within 1 week of discharge. Please get outpatient anemic workup. You have been started on: -Amlodipine 5 mg daily Discontinued hydrochlorothiazide and lisinopril due to risk of pancreatitis Continue taking all other medicines as prescribed -Recommended to return back to emergency department if your symptoms persists or worsens The patient's management plan was discussed with my attending physician MD Shahab Lira MD, PGY2 Time Spent with Patient Time attestation: Total time spent providing and/or coordinating discharge services: Greater than 30 minutes Exam Vital Signs Temp Pulse Resp BP Pulse Ox O2 Del Method 97.6 F 94 18 121/80 97 Room Air 06/19/24 11:57 06/19/24 11:57 06/19/24 11:57 06/19/24 11:57 06/19/24 11:57 06/19/24 11:57 Narrative Exam General: No acute distress, Alert and Oriented x 3 HEENT: Moist mucous membranes, oropharynx clear Neck: Supple, No masses, No JVD CVS: S1S2 Regular rate and rhythm, No murmurs, rubs or gallops Lungs: Clear to auscultation with no accessory use, no wheeze no rhonchi Abd: Soft, NT/ND, +BS, no organomegaly Ext: No edema, warm and well perfused Skin: No rash Psych: Appropriate mood and affect Discharge Plan Plan Patient Disposition: Half-Way/Court/Law Disposition Comment: Stable Care Plan Goals: Please follow-up with your PCP within 1 week of discharge. Please get outpatient anemic workup. You have been started on: -Amlodipine 5 mg daily Discontinued hydrochlorothiazide and lisinopril due to risk of pancreatitis Continue taking all other medicines as prescribed -Recommended to return back to emergency department if your symptoms persists or worsens Prescriptions/Referrals Prescriptions/Med Rec: New amlodipine 5 mg tablet 5 mg PO QDAY Qty: 30 2RF Continued atorvastatin 10 mg tablet 10 mg PO QPM Discontinued hydrochlorothiazide 12.5 mg tablet 12.5 mg PO QAM Qty: 30 0RF lisinopril 10 mg tablet 10 mg PO QDAY Qty: 30 0RF Referrals: David Scales MD [Primary Care Provider] - Patient/Caregiver Discharge Instructions Discharge Activity: activity as tolerated Education Materials: Understanding Pancreatitis, Pancreatitis Acute Dc, ED Pancreatitis Print Language: Indian Discharge Order Discharge Orders: Discharge (Routine); Ordered 06/19/24 Ordered By: Shahab Olsen Quality Discharge Quality Measures VTE prophylaxis
== END 2024-06-19 13:55 | DRG 440 ==
LOC: SERX 19:51 → SERHOLD 21:50 → S3SX 06-18 03:27 → S3EX 06-18 11:17
PROVIDERS: Nurse Practitioner Family; Admitting Provider Internal Medicine; Emergency Provider Emergency Medicine; PCP Emergency Medicine; Visit Provider Internal Medicine
DX: K85.90 Acute pancreatitis without necrosis or infection, unspecified (principal); I10 Essential (primary) hypertension; E78.5 Hyperlipidemia, unspecified; E66.811 Obesity, class 1; Z68.32 Body mass index [BMI] 32.0-32.9, adult; K76.0 Fatty (change of) liver, not elsewhere classified; F17.210 Nicotine dependence, cigarettes, uncomplicated; T50.2X5A Adverse effect of carbonic-anhydrase inhibitors, benzothiadiazides and other diuretics, initial encounter; T46.4X5A Adverse effect of angiotensin-converting-enzyme inhibitors, initial encounter; Z79.899 Other long term (current) drug therapy
CPT/HCPCS: 36415; 74177; 76705; 80053; 80061; 80307; 80320; 81001; 83036; 83615; 83690; 83735; 84100; 84443; 85025; 85610; 85730; 93005; 94664; 96361; 96372; 96374; 96375; 96376; 99285; A4649; J1650; J1885; J2270; J2405; J2470; J3475; J3480; J3490; J7030; J7120; Q9967; A9270; G0480